=== PATIENT | female | born 1975 | race African-American/Black ===

== ENCOUNTER 2018-12-30 08:08 | Emergency (ER) | payer MEDICAID ==
[~2018-12-30] VITALS: Ht 167.6 cm; Wt 90.0 kg
[2018-12-30] MEDS ORDERED: ALBU2TAB4 PO (08:20)
[2018-12-30] MEDS ORDERED: KETOROLAC 60MG/2ML VIAL IM STA ×2 (08:40→11:05)
[2018-12-30] MEDS ORDERED: ACETAMINOPHEN 500MG TABLET PO ONE (09:00)
[2018-12-30 12:02] VITALS: BP 122/83
== END 2018-12-30 12:10 | disposition home or self-care (01) ==
LOC: ER 08:08
DX: M54.32 Sciatica, left side (principal); M25.552 Pain in left hip; J45.909 Unspecified asthma, uncomplicated; Z79.899 Other long term (current) drug therapy; W22.8XXA Striking against or struck by other objects, initial encounter; Y93.89 Activity, other specified; Y92.89 Other specified places as the place of occurrence of the external cause; Y99.8 Other external cause status
CPT/HCPCS: 73502; 76830; 76856; 81025; 96372; 99284; J1885

== ENCOUNTER 2019-01-04 08:01 | Emergency (ER) | payer MEDICAID ==
[~2019-01-04] VITALS: Ht 160 cm; Wt 80.1 kg
[~2019-01-04 08:01] MED LIST: ALBU2TAB4 PO
[2019-01-04] MEDS ORDERED: HYDROCODONE/ACETAMINOPHEN 5/325MG TABLET PO ONE (08:45)
[2019-01-04] MEDS ORDERED: IBUPROFEN 800MG TABLET PO ONE (08:45)
[2019-01-04 09:14] LABS: BASOPHILS % 0.6 % (0.0-2.0); CLARITY URINE CLEAR (CLEAR); COLOR URINE YELLOW (YELLOW); EOSINOPHILS % 2.1 % (0.0-5.0); HEMOGLOBIN. 13.1 g/dL (12.0-16.0); KETONES URINE TRACE (NEGATIVE); LEUKOCYTE ESTERASE URINE NEGATIVE (NEGATIVE); LYMPHOCYTES % 26.2 % (20.0-50.0); MEAN CORPUSCULAR HEMOGLOBIN 31.8 pg (28.0-32.0); MEAN CORPUSCULAR VOLUME 92.2 fL (81.0-99.0); MEAN PLATELET VOLUME 8.1 fl (7.4-10.4); MONOCYTES % 6.3 % (2.0-8.0); NEUTROPHILS % 64.8 % (40.0-76.0); NITRITE URINE NEGATIVE (NEGATIVE); OCCULT BLOOD URINE TRACE (NEGATIVE); PLATELET 380 x1000/uL (130-400); PROTEIN URINE NEGATIVE (NEGATIVE); RED BLOOD CELL COUNT 4.12 mill/uL (4.2-5.4); RED CELL DISTRIBUTION WIDTH 12.6 % (11.6-14.6); SPECIFIC GRAVITY URINE 1.009 (1.005-1.030)
[2019-01-04 09:15] LABS: CHLORIDE 103 mEq/L (98-107)
[2019-01-04 09:38] LABS: B-HCG QUANTITATIVE 1056 mIU/mL (<3)
[2019-01-04 12:00] VITALS: BP 103/63
== END 2019-01-04 12:00 | disposition home or self-care (01) ==
LOC: ER 08:01
DX: O03.89 Complete or unspecified spontaneous abortion with other complications (principal); O23.31 Infections of other parts of urinary tract in pregnancy, first trimester; J45.909 Unspecified asthma, uncomplicated; F12.10 Cannabis abuse, uncomplicated; Z90.89 Acquired absence of other organs; Z3A.01 Less than 8 weeks gestation of pregnancy
CPT/HCPCS: 36415; 84702; 86850; 86900; 99283

== ENCOUNTER 2019-01-09 09:46 | Emergency (ER) | payer MEDICAID ==
[~2019-01-09] VITALS: Ht 160 cm; Wt 82.0 kg
[2019-01-09 11:30] LABS: BASOPHILS % 0.4 % (0.0-2.0); LYMPHOCYTES % 24.9 % (20.0-50.0); MEAN CORPUSCULAR HEMOGLOBIN 32.1 pg (28.0-32.0); MEAN CORPUSCULAR VOLUME 93.6 fL (81.0-99.0); MEAN PLATELET VOLUME 8.1 fl (7.4-10.4); MONOCYTES % 4.5 % (2.0-8.0); NEUTROPHILS % 69.2 % (40.0-76.0); PLATELET 323 x1000/uL (130-400); RED BLOOD CELL COUNT 3.74 mill/uL (4.2-5.4); RED CELL DISTRIBUTION WIDTH 13.2 % (11.6-14.6)
[2019-01-09 13:06] VITALS: BP 131/78
== END 2019-01-09 13:07 | disposition home or self-care (01) ==
LOC: ER 09:46
DX: O20.0 Threatened abortion (principal); J45.909 Unspecified asthma, uncomplicated; F12.10 Cannabis abuse, uncomplicated; F17.200 Nicotine dependence, unspecified, uncomplicated; Z3A.00 Weeks of gestation of pregnancy not specified; Z90.49 Acquired absence of other specified parts of digestive tract; Z79.899 Other long term (current) drug therapy
CPT/HCPCS: 36415; 76801; 84702; 99284